=== PATIENT | female | born 1970 | race African-American/Black ===

== ENCOUNTER 2016-10-16 08:47 | Emergency (ER) | payer OTHER ==
--- NOTE | 2016-10-16 09:57 | ER Document Report ---
ED Syncope and Near Syncope - General Mode of Arrival: Ambulatory Information source: Patient TRAVEL OUTSIDE OF THE [place] IN LAST 30 DAYS: No - HPI Patient complains to provider of: Fainting Context: Other - See above <JENNIFER TURPIN - Last Filed: 10/16/16 11:01> <JAZ ACUNA - Last Filed: 10/16/16 20:00> - General Chief Complaint: Syncope Stated Complaint: syncope Time Seen by Provider: 10/16/16 09:20 Notes: Patient is a 46 year old female who presents to the emergency department complaining of a syncopal episode yesterday afternoon. Patient states that she went for a walk in the morning and then took a hot bath, when she exited the bath she felt overheated and so went to take a cool shower, while in the shower patient passed out and woke up on the floor. Patient states that she has felt slightly disoriented, nauseated, and dizzy after the incident and complains of pain in her right hand and left knee. Patient also has chronic back pain and states that yesterday's fall exacerbated the pain in her right neck that shoots down her back into her leg. PCP: [facility] (JENNIFER TURPIN) - Related Data Allergies/Adverse Reactions: Penicillins Allergy (Verified 10/16/16 08:51) hives, trouble breathing Past Medical History - General Information source: Patient - Social History Smoking Status: Never Smoker Chew tobacco use (# tins/day): No Frequency of alcohol use: None Drug Abuse: None Patient has suicidal ideation: No Patient has homicidal ideation: No GI Medical History: Reports: Hx Gastroesophageal Reflux Disease Musculoskeltal Medical History: Reports Hx Restless Leg Syndrome Psychiatric Medical History: Reports: Hx Attention Deficit Hyperactivity Disorder, Hx Dementia <JENNIFER TURPIN - Last Filed: 10/16/16 11:01> - Social History Family History: Reviewed & Not Pertinent <JAZ ACUNA - Last Filed: 10/16/16 20:00> Review of Systems - Review of Systems Constitutional: No symptoms reported EENT: No symptoms reported Cardiovascular: See HPI, Syncope, Dizziness Respiratory: No symptoms reported Gastrointestinal: See HPI, Nausea Genitourinary: No symptoms reported Female Genitourinary: No symptoms reported Musculoskeletal: See HPI, Back pain, Joint pain, Neck pain Skin: No symptoms reported Hematologic/Lymphatic: No symptoms reported Neurological/Psychological: No symptoms reported -: Yes All other systems reviewed and negative <JENNIFER TURPIN - Last Filed: 10/16/16 11:01> Physical Exam - Vital signs Interpretation: Normal - General General appearance: Appears well, Alert - HEENT Head: Normocephalic, Atraumatic Neck: Other - para cervical tenderness to palpation - Respiratory Respiratory status: No respiratory distress Chest status: Nontender Breath sounds: Normal Chest palpation: Normal - Cardiovascular Rhythm: Regular Heart sounds: Normal auscultation Murmur: No - Abdominal Inspection: Normal Distension: No distension Bowel sounds: Normal Tenderness: Nontender Organomegaly: No organomegaly - Extremities Hand: Other - swelling to dorsal aspect of right hand Knee: Other - no ligamentous instability of left knee - Neurological Neuro grossly intact: Yes Cognition: Normal Orientation: AAOx4 Genoveva Coma Scale Eye Opening: Spontaneous [place] Coma Scale Verbal: Oriented Genoveva Coma Scale Motor: Obeys Commands Genoveva Coma Scale Total: 15 Speech: Normal Motor strength normal: LUE, RUE, LLE, RLE Sensory: Normal - Psychological Associated symptoms: Normal affect, Normal mood - Skin Skin Temperature: Warm Skin Moisture: Dry Skin Color: Normal <JENNIFER TURPIN - Last Filed: 10/16/16 11:01> Course - Laboratory Result Diagrams: 10/16/16 10:45 10/16/16 10:45 <JENNIFER TURPIN - Last Filed: 10/16/16 11:01> - Laboratory Result Diagrams: 10/16/16 10:45 10/16/16 10:45 <JAZ ACUNA - Last Filed: 10/16/16 20:00> - Re-evaluation Re-evalutation: 10/16/16 11:51 Patient presents emergency Department with a chief complaint of back pain hand pain knee pain. Patient states that she took a hot bath after going for a walk yesterday and the he felt really flushed when she sat up went to get in the shower to call her self off and passed out. Said she woke up on the ground not incontinent of urine or stool. She said that she was little stiff and sore when she woke up this morning she was having pain in her hand knee and back. She states that she has [facility] that. She denies any loss of bowel or bladder function no headache blurred vision double vision GCS of 15 no neurological deficits no chest pain shortness of breath nausea vomiting dull pain or diarrhea. She is normotensive and not tachycardic well-appearing on examination she has no midline cervical thoracic or lumbar tenderness some paralumbar muscular skeletal tenderness negative bilateral straight leg raise test. Left knee is not red hot swollen no ligamentous instability she has mild swelling of the posterior hand. X-rays of the hand knee and lumbar spine show arthritis but no acute fractures. Patient will be discharged Tylenol Motrin and follow primary care physician in 3-4 days and discussed reasons Erandia return sooner 10/16/16 19:59 (JAZ ACUNA) - Vital Signs Vital signs: Temp Pulse Resp BP Pulse Ox 98.3 F 92 18 133/82 H 100 10/16/16 12:12 10/16/16 12:12 10/16/16 12:12 10/16/16 12:12 10/16/16 12:12 - Laboratory Laboratory results interpreted by me: 10/16/16 10/16/16 10:45 10:45 Hgb 11.6 L Hct 34.8 L RDW 14.3 H Sodium 136.7 L Discharge <JENNIFER TURPIN - Last Filed: 10/16/16 11:01> <JAZ ACUNA - Last Filed: 10/16/16 20:00> - Discharge Clinical Impression: syncope, contusion left hand, left knee sprain, lumbosacral strain Condition: Stable Disposition: HOME, SELF-CARE Additional Instructions: Contusion Your injury has resulted in a contusion -- a crushing of the deep tissues. No injury to important structures was detected during the physician's exam. Contusions vary in the amount of pain they cause, and in the length of time required for healing. Typically, the area will become bruised, and will remain painful to touch for two or three weeks. However, most patients are back to working and playing within a few days. After the initial period of rest and cold-packs, your symptoms (together with the doctor's recommendations) will determine how rapidly you can get back to full activity. Usually this means "do what feels okay, but don't do things that hurt." If re-examination was recommended, it's important to follow up as instructed. Call the doctor or return any time if pain increases, if swelling becomes severe, if you develop numbness or weakness in an injured extremity, or if any other alarming symptoms occur. Sprain Your injury is a sprain. A sprain results from stretching or tearing of the ligaments, usually from a twisting injury. The ligaments will require time and protection in order to heal properly. Many sprains are quite disabling and should be taken seriously. The usual initial treatment of sprains is cold packs, elevation, and rest of the injured area. Your physician has assessed the seriousness of your ligament injury, and has outlined a treatment plan. Understand that this treatment may change, depending on how you progress. If a re-examination was recommended, it is important that you follow up as instructed. Call the doctor any time if there is severe pain, numbness, or loss of function in the injured area. Follow up with your doctor at the [facility] in 3-4 days return for increasing worsening or new symptoms Scribe Attestation: 10/16/16 11:54 I personally performed the services described in the documentation reviewed the documentation recorded by my scribe in my presence and it accurately and completely records my words and actions (JAZ ACUNA) Scribe Documentation - Scribe Written by Lorelei:: lorelei Villarreal, 10/16/16, 1048 acting as scribe for :: Won <JENNIFER TURPIN - Last Filed: 10/16/16 11:01>
[2016-10-16 10:27] LABS: APPEARANCE,URINE SLIGHTLY-CLOUDY; BILIRUBIN,URINE NEGATIVE (NEGATIVE); GLUCOSE, URINE NEGATIVE (NEGATIVE); KETONES,URINE NEGATIVE (NEGATIVE); LEUKOCYTE ESTERASE,URINE NEGATIVE (NEGATIVE); NITRITE,URINE NEGATIVE (NEGATIVE); PROTEIN,URINE NEGATIVE (NEGATIVE); URINE SPECIFIC GRAVITY 1.003; UROBILINOGEN,URINE NEGATIVE mg/dL (<2.0)
[2016-10-16 11:04] LABS: ABSOLUTE BASOPHILS # (AUTO) 0.1 10^3/uL (0.0-0.2); ABSOLUTE EOSINOPHILS # (AUTO) 0.1 10^3/uL (0.0-0.6); ABSOLUTE LYMPHOCYTES (AUTO) 1.4 10^3/uL (0.5-4.7); ABSOLUTE MONOCYTES (AUTO) 0.5 10^3/uL (0.1-1.4); ABSOLUTE NEUT (AUTO) 5.7 10^3/uL (1.7-8.2); BASOPHILS % (AUTO) 0.9 % (0-2); EOSINOPHILS % (AUTO) 1.1 % (0-6); HEMATOCRIT 34.8 % (36.0-47.0); HEMOGLOBIN 11.6 g/dL (12.0-15.5); LYMPHOCYTES % (AUTO) 17.7 % (13-45); MEAN CORPUSCULAR HEMOGLOBIN 27.2 pg (27.0-33.4); MEAN CORPUSCULAR HGB CONC 33.2 g/dL (32.0-36.0); MEAN CORPUSCULAR VOLUME 82 fl (80-97); RED BLOOD COUNT 4.26 10^6/uL (3.72-5.28); RED CELL DISTRIBUTION WIDTH 14.3 % (11.5-14.0); SEGMENTED NEUTROPHILS % (AUTO) 73.3 % (42-78); WHITE BLOOD COUNT 7.8 10^3/uL (4.0-10.5)
[2016-10-16 11:23] LABS: ANION GAP 9 (5-19); BLOOD UREA NITROGEN 7 mg/dL (7-20); CALCIUM 9.2 mg/dL (8.4-10.2); CARBON DIOXIDE 29 mmol/L (22-30); CHLORIDE 99 mmol/L (98-107); CREATININE RESULT 0.92 mg/dL (0.52-1.25); GLUCOSE 84 mg/dL (75-110); POTASSIUM 4.1 mmol/L (3.6-5.0); SODIUM 136.7 mmol/L (137-145)
[2016-10-16 12:13] VITALS: BP 133/82
== END 2016-10-16 12:13 | disposition home or self-care (01) ==
LOC: ER 08:47
DX: R55 Syncope and collapse (principal); S60.222A Contusion of left hand, initial encounter; S83.92XA Sprain of unspecified site of left knee, initial encounter; S39.012A Strain of muscle, fascia and tendon of lower back, initial encounter; G89.29 Other chronic pain; W19.XXXA Unspecified fall, initial encounter; R11.0 Nausea; R42 Dizziness and giddiness; G25.81 Restless legs syndrome; K21.9 Gastro-esophageal reflux disease without esophagitis; Z88.0 Allergy status to penicillin
CPT/HCPCS: 36415; 72110; 80048; 81001; 81025; 85025; 99284

== ENCOUNTER 2016-12-31 16:23 | Emergency (ER) | payer OTHER ==
[2016-12-31 16:43] VITALS: BP 132/85
[2016-12-31] MEDS ORDERED: ACETAMINOPHEN 325 MG TABLET PO ONE (17:05)
--- NOTE | 2016-12-31 18:03 | ER Document Report ---
ED Skin Rash/Insect Bite/Abscs - General Chief Complaint: Headache Stated Complaint: POSSIBLE ABSCESS Time Seen by Provider: 12/31/16 16:58 TRAVEL OUTSIDE OF THE [place] IN LAST 30 DAYS: No - HPI Patient complains to provider of: Tender/swollen area - left lateral hariline above her left eye, swollen tender without draiange mild erythema Onset: Other - Onset/Duration: Gradual Quality of pain: Achy, Pressure, Throbbing Skin Character: Abscess Skin Temperature: Hot Quality of rash: Painful Identify cause: No - Related Data Allergies/Adverse Reactions: Penicillins Allergy (Verified 12/31/16 16:41) hives, trouble breathing Past Medical History - Social History Smoking Status: Unknown if Ever Smoked Family History: Reviewed & Not Pertinent Renal/ Medical History: Denies: Hx Peritoneal Dialysis GI Medical History: Reports: Hx Gastroesophageal Reflux Disease Psychiatric Medical History: Reports: Hx Attention Deficit Hyperactivity Disorder, Hx Dementia Review of Systems - Review of Systems Constitutional: No symptoms reported Skin: See HPI -: Yes All other systems reviewed and negative Physical Exam - Vital signs Vitals: Temp Pulse Resp BP Pulse Ox 98.8 F 93 18 132/85 H 100 12/31/16 16:42 12/31/16 16:42 12/31/16 16:42 12/31/16 16:42 12/31/16 16:42 - General General appearance: Appears well, Alert In distress: None - HEENT Head: Normocephalic, Atraumatic. No: Abrasions, Medrano's sign, Ecchymosis, Open wounds, [place]'s eyes, Tenderness Eyes: Normal Conjunctiva: Normal Extraocular movements intact: Yes Eyelashes: Normal Pupils: PERRL - Neurological Neuro grossly intact: Yes Cognition: Normal Orientation: AAOx4 Genoveva Coma Scale Eye Opening: Spontaneous Genoveva Coma Scale Verbal: Oriented [place] Coma Scale Motor: Obeys Commands [place] Coma Scale Total: 15 - Skin Skin irregularity: Abscess Location of irregularity: Scalp Irregularity with: Swelling, Tenderness, Warmth, Induration, Well defined border Course - Re-evaluation Re-evalutation: 12/31/16 20:50 Patient is a 46-year-old female who is hemodynamic stable, no acute distress afebrile. I&D performed at the bedside with minimal purulent material excised from the wound. Dry sterile dressing applied patient educated on folliculitis and post incision and drainage care. Patient states understanding stable for discharge home. - Vital Signs Vital signs: Temp Pulse Resp BP Pulse Ox 98.8 F 93 18 132/85 H 100 12/31/16 16:42 12/31/16 16:42 12/31/16 16:42 12/31/16 16:42 12/31/16 16:42 Procedures - Incision and Drainage Head Type: Simple Anesthetic type: 1% Lidocaine mL's of anesthetic: 2 Blade size: 11 I&D procedure: Betadine prep applied Incision Method: Incision made with needle Amount/type of drainage: 2cc purulent material Discharge - Discharge Clinical Impression: Folliculitis Condition: Good Disposition: HOME, SELF-CARE Instructions: Folliculitis ([facility]), Warm Packs ([facility]), Post Incision and Drainage Prescriptions: Sulfamethoxazole/Trimethoprim [Bactrim Ds Tablet] 1 each PO BID #10 tablet
== END 2016-12-31 18:10 | disposition home or self-care (01) ==
LOC: ER 16:23
DX: L73.9 Follicular disorder, unspecified (principal); Z88.0 Allergy status to penicillin
CPT/HCPCS: 99283

== ENCOUNTER 2018-03-04 01:24 | Emergency (ER) | payer MEDICARE ==
[2018-03-04] MEDS ORDERED: ASPIRIN 81 MG TABLET, CHEWABLE PO ONE (04:07)
--- NOTE | 2018-03-04 04:29 | RADIOLOGY REPORT (SQ) ---
EXAM DESCRIPTION: XR CHEST 1 VIEW COMPLETED DATE/TME: 03/04/2018 04:07 CLINICAL HISTORY: 48 years, Female, chest pressure COMPARISON: None. NUMBER OF VIEWS: One TECHNIQUE: AP view the chest LIMITATIONS: None. FINDINGS: The lungs are clear. The heart is normal in size. There is no pneumothorax or pleural effusion. There is no acute fracture IMPRESSION: No acute cardiopulmonary abnormality 2010 [employer] [facility] [employer]- All Rights Reserved
[2018-03-04 04:51] LABS: ABSOLUTE EOSINOPHILS # (AUTO) 0.2 10^3/uL (0.0-0.6); ABSOLUTE LYMPHOCYTES (AUTO) 1.3 10^3/uL (0.5-4.7); ABSOLUTE MONOCYTES (AUTO) 0.5 10^3/uL (0.1-1.4); ABSOLUTE NEUT (AUTO) 3.2 10^3/uL (1.7-8.2); BASOPHILS % (AUTO) 0.6 % (0-2); EOSINOPHILS % (AUTO) 3.4 % (0-6); HEMATOCRIT 31.6 % (36.0-47.0); HEMOGLOBIN 10.6 g/dL (12.0-15.5); LYMPHOCYTES % (AUTO) 25.1 % (13-45); MEAN CORPUSCULAR HEMOGLOBIN 27.8 pg (27.0-33.4); MEAN CORPUSCULAR HGB CONC 33.4 g/dL (32.0-36.0); MEAN CORPUSCULAR VOLUME 83 fl (80-97); PLATELET COUNT 339 10^3/uL (150-450); RED CELL DISTRIBUTION WIDTH 13.2 % (11.5-14.0); SEGMENTED NEUTROPHILS % (AUTO) 61.9 % (42-78); TOTAL CELLS COUNTED % (AUTO) 100 %; WHITE BLOOD COUNT 5.2 10^3/uL (4.0-10.5)
[2018-03-04 05:06] LABS: ALANINE AMINOTRANSFERASE 23 U/L (9-52); ALBUMIN 3.5 g/dL (3.5-5.0); ALKALINE PHOSPHATASE 45 U/L (38-126); ANION GAP 5 (5-19); ASPARTATE AMINO TRANSFERASE 35 U/L (14-36); BILIRUBIN,DIRECT 0.5 mg/dL (0.0-0.4); BILIRUBIN,TOTAL 0.8 mg/dL (0.2-1.3); BLOOD UREA NITROGEN 13 mg/dL (7-20); CALCIUM 8.5 mg/dL (8.4-10.2); CARBON DIOXIDE 28 mmol/L (22-30); CHLORIDE 103 mmol/L (98-107); CREATINE KINASE 355 U/L (30-135); GLUCOSE 89 mg/dL (75-110); POTASSIUM 3.7 mmol/L (3.6-5.0); SODIUM 136.4 mmol/L (137-145); TOTAL PROTEIN 6.5 g/dL (6.3-8.2)
[2018-03-04 05:18] LABS: CREATINE KINASE MB 2.99 ng/mL (<4.55)
[2018-03-04 05:19] LABS: TROPONIN I < 0.012 ng/mL
[2018-03-04] MEDS ORDERED: MORPHINE SULFATE 10 MG/ML INJ IV ONE (05:54)
[2018-03-04] MEDS ORDERED: ONDANSETRON HCL INJ/PF 4 MG/2 ML SDV IV ONE (05:54)
[2018-03-04] MEDS ORDERED: NORMAL SALINE 1000 ML 1,000 ML IV ONE (05:55)
--- NOTE | 2018-03-04 06:53 | ER Document Report ---
ED General - General Chief Complaint: Numbness of Arm Stated Complaint: ARM NUMBNESS Time Seen by Provider: 03/04/18 03:50 Mode of Arrival: Ambulatory Information source: Patient Notes: Patient is a 48-year-old female who presents with chief complaint of right shoulder pain which is chronic from an old injury and intermittent numbness in her left arm. Patient reports this is been ongoing since yesterday morning. Patient states that it resolved on its own and then began again a few hours ago. Patient also describes a heaviness in the middle of her chest yesterday with tingling going down into the left arm and hand which has since resolved. Patient denies any cardiac history. Patient reports history of depression and restless leg syndrome. [facility]. TRAVEL OUTSIDE OF THE [place] IN LAST 30 DAYS: No - Related Data Allergies/Adverse Reactions: Penicillins Allergy (Verified 03/04/18 01:29) hives, trouble breathing Past Medical History - General Information source: Patient - Social History Smoking Status: Never Smoker Family History: Reviewed & Not Pertinent Patient has suicidal ideation: No Patient has homicidal ideation: No Renal/ Medical History: Denies: Hx Peritoneal Dialysis GI Medical History: Reports: Hx Gastroesophageal Reflux Disease Psychiatric Medical History: Reports: Hx Attention Deficit Hyperactivity Disorder, Hx Dementia, Hx Depression - Immunizations Immunizations up to date: Yes Review of Systems - Review of Systems Cardiovascular: Chest pain Musculoskeletal: See HPI -: Yes All other systems reviewed and negative Physical Exam - Vital signs Vitals: Temp Pulse Resp BP Pulse Ox 97.9 F 94 18 137/90 H 100 03/04/18 01:32 03/04/18 01:32 03/04/18 01:32 03/04/18 01:32 03/04/18 01:32 - Notes Notes: PHYSICAL EXAMINATION: GENERAL: Well-appearing, well-nourished and in no acute distress. HEAD: Atraumatic, normocephalic. EYES: Pupils equal round and reactive to light, extraocular movements intact, conjunctiva are normal. ENT: Nares patent, oropharynx clear without exudates. Moist mucous membranes. NECK: Normal range of motion, supple without lymphadenopathy LUNGS: Breath sounds clear to auscultation bilaterally and equal. No wheezes rales or rhonchi. HEART: Regular rate and rhythm without murmurs ABDOMEN: Soft, nontender, nondistended abdomen. No guarding, no rebound. No masses appreciated. Female : No CVA tenderness Musculoskeletal: Normal range of motion, no pitting or edema. No cyanosis. NEUROLOGICAL: Cranial nerves grossly intact. Normal speech, normal gait. Normal sensory, motor exams PSYCH: Normal mood, normal affect. SKIN: Warm, Dry, normal turgor, no rashes or lesions noted. Course - Re-evaluation Re-evalutation: CBC, CMP are unremarkable. CK mildly elevated at 355. Troponin is negative. Chest x-ray with no acute findings. EKG sinus rhythm, rate of 93, QTc 463. Normal axis with no ST segment elevations or depressions. Patient reports significant improvement of her symptoms after IV fluids, antiemetics and pain medication. Discussed cardiac risk factors with patient and declines to stay for second troponin. Patient has a heart score of 2 and has had no chest pain while in the department today. Patient will be discharged home in stable condition. - Vital Signs Vital signs: Temp Pulse Resp BP Pulse Ox 97.7 F 94 19 143/88 H 100 03/04/18 08:47 03/04/18 01:32 03/04/18 08:01 03/04/18 08:01 03/04/18 08:01 - Laboratory Result Diagrams: 03/04/18 04:38 03/04/18 04:38 Laboratory results interpreted by me: 03/04/18 03/04/18 04:38 04:38 Hgb 10.6 L Hct 31.6 L Sodium 136.4 L Direct Bilirubin 0.5 H Creatine Kinase 355 H Discharge - Discharge Clinical Impression: Numbness and tingling in left arm Right shoulder pain Qualifiers: Chronicity: acute Qualified Code(s): M25.511 - Pain in right shoulder Condition: Stable Disposition: HOME, SELF-CARE Additional Instructions: Your workup today to include, EKG, chest x-ray were all unremarkable. Please follow-up with your primary care doctor this week regarding the pain and tingling in your left arm and hand. This may very well be originating from your chronic shoulder injury. Please return to the emergency department immediately if you develop any new or worsening symptoms to include chest pain, shortness of breath or any other symptom that is concerning to you. Forms: Return to Work, Work Clearance
[2018-03-04] MEDS ORDERED: HYDROCODONE/ACETAMINOPHEN 5-325 MG (6 TAB/ER DISP) PO PRN (07:52)
--- NOTE | 2018-03-04 07:56 | EKG REPORT ---
SEVERITY:- BORDERLINE ECG - SINUS RHYTHM PROBABLE LEFT ATRIAL ABNORMALITY : Confirmed by: Chidi Garcia 04-Mar-2018 07:55:32
[2018-03-04 08:46] VITALS: BP 143/88
== END 2018-03-04 08:59 | disposition home or self-care (01) ==
LOC: ER 01:24
DX: R20.0 Anesthesia of skin (principal); R20.2 Paresthesia of skin; M25.511 Pain in right shoulder; G89.29 Other chronic pain; S00-T88 Injury, poisoning and certain other consequences of external causes; X58.XXXD Exposure to other specified factors, subsequent encounter; R07.9 Chest pain, unspecified; Z88.0 Allergy status to penicillin
CPT/HCPCS: 93005; 99284; 96361; 96374; 36415; 82553; 82550; 85025; 80053; 84484; 71045; 93010; A9270 ×2; J2270; J2405